=== PATIENT | male | born 1930 | race Hispanic/Latino ===

== ENCOUNTER → 2018-05-28 | Outpatient (CLI) | payer OTHER ==
--- NOTE | 2018-05-28 09:33 | Diagnostic Imaging Report ---
Barium swallow with upper GI FACE BOSS(S): Sydney Guaman MD Comparison: None. Procedure: Barium swallow and upper GI fluoroscopic images obtained with air and barium contrast in a variety of positions. DISCUSSION: SENIOR QUALITY ASSURANCE ENGINEER: The bowel gas pattern is non-obstructive. SWALLOW: Grossly unremarkable. ESOPHAGUS: Mucosa is unremarkable. Predominately primary contractions. Slower clearance of contrast into the stomach on supine position compared to standing. Severe spontaneous gastroesophageal reflux above the level of the aortic arch. STOMACH: Unremarkable mucosal pattern. Moderate sliding hiatal hernia. SMALL BOWEL: Bulb and sweep are normal. Duodenal-jejunal junction is in the normal expected position. Visualized proximal small bowel loops are unremarkable. Fluoroscopy Time: 1.5 minutes; total radiation dose 77.2 mGy IMPRESSION: Moderate hiatal hernia with severe spontaneous gastroesophageal reflux. Delayed clearance of contrast from the esophagus to the stomach in supine positioning compared to standing. Signed by: Dr. Sydney Guaman MD on 05/28/2018 9:30 AM
== END ==
LOC: DX 08:34
PROVIDERS: ATTEND Internal Medicine Gastroenterology
DX: R13.10 Dysphagia, unspecified (principal)
CPT/HCPCS: 74246